=== PATIENT | female | born 1975 | race American Indian/Alaskan Native ===

== ENCOUNTER 2016-12-24 22:25 | Emergency (ER) | payer BC, OTHER ==
[~2016-12-24] VITALS: Ht 149.9 cm; Wt 70.3 kg
[~2016-12-24 22:25] MED LIST: BENADRYL25 MG PO; CIPROFLOXACIN500 MG PO; CORTIZONE-1099 GM TOP; COZAAR100 MG PO; CRESTOR40 MG PO; HYDROCHLOROTHIA25 MG PO; KEFLEX500 MG PO; MINOCYCLINE HC100 M1 PO; NAPROXEN500 MG PO; NOVOLOG100 UNITS/ SUB-Q; PHENAZOPYRIDIN200 MG PO; TYLENOL325 MG PO; WELLBUTRIN SR150 MG PO
[2016-12-24] MEDS ORDERED: AMLODIPINE BESYL5 MG PO (22:54)
[2016-12-24] MEDS ORDERED: LIPITOR40 MG PO (22:55)
--- NOTE | 2016-12-25 05:53 | EKG ---
[facility] [address] [place] [address] Signed Normal sinus rhythm Normal ECG No previous ECGs available Confirmed by ANGELLA PAN MD ([id number]) on 12/25/2016 5:53:05 AM Electronically Signed By: ANGELLA PAN MD 12/25/16 0553 PATIENT NAME: ANIA MENJIVAR MOUNA Electrocardiogram DATE OF : 73 PHYSICIAN: ANGELLA PAN MD REPORT #: [id number] REPORT IS CONFIDENTIAL AND NOT TO BE RELEASED WITHOUT AUTHORIZATION
== END 2016-12-25 01:18 | disposition home or self-care (01) ==
LOC: ED 22:25
DX: R60.0 Localized edema (principal); E10.22 Type 1 diabetes mellitus with diabetic chronic kidney disease; N18.3 Chronic kidney disease, stage 3 (moderate); F32.9 Major depressive disorder, single episode, unspecified; E78.5 Hyperlipidemia, unspecified; Z98.890 Other specified postprocedural states; Z88.0 Allergy status to penicillin; Z88.5 Allergy status to narcotic agent; Z88.8 Allergy status to other drugs, medicaments and biological substances; Z79.899 Other long term (current) 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; Z79.4 Long term (current) use of insulin
CPT/HCPCS: 71010; 80053; 81001; 84484; 85025; 93005; 93010; 99284

== ENCOUNTER 2017-05-27 14:27 | Observation (INO) | payer OTHER ==
[~2017-05-27] VITALS: Ht 149.9 cm; Wt 70.3 kg
[~2017-05-27 14:27] MED LIST changes: +AMLODIPINE BESYL5 MG PO; +LIPITOR40 MG PO
[2017-05-27] MEDS ORDERED: ALDACTONE25 MG PO (14:45)
[2017-05-27] MEDS ORDERED: CRESTOR10 MG PO (14:45)
[2017-05-27] MEDS ORDERED: GENVOYA TABLET1 EACH PO (14:46)
[2017-05-27] MEDS ORDERED: MAXIMUM DAILY1 EACH PO (14:46)
--- NOTE | 2017-05-27 20:00 | NUR ---
RC'D REPORT FROM DAY SHIFT NURSE. PT IN BED RESTING. SPOUSE AT BEDSIDE. ASSSESMENT COMPLETED. CBG 172, PT ASSESSED CBG WITH HOME DEVICE, HOME DEVICE FOUND TO HAVE A 30 POINT DIFFERENCE. INSULIN DRIP DC'D AT THIS TIME PER ORDER. PT REQUESTING MEAL, DIET UPDATED TO ADA, MEAL BOX ORDERED. CONTINUOUS NS @100ML/HR STARTED, SITE INTACT AND PATENT. CBG TO REASSESSED IN 1 HOUR. CALL LIGHT WITHIN REACH AND PT ADVISED TO CALL FOR ASSISTANCE TO RESTROOM.
--- NOTE | 2017-05-27 21:10 | NUR ---
IV ALARM SOUNDING FOR DISTAL OCCLUSION. CONTINUOUS LINE CHANGED FROM RAC TO RW. RAC FLUSHED AT THIS TIME. CBG OBTAINED AND 110, PT OBTAINED CBG WITH HOME DEVICE AND 20 POINT DIFFERENCE NOTED. PUMP SITE ASSESSED AND WNL. PT STATES SHE MAY CHANGE/ASSESS PUMP SITE IF CBG CONTINUE TO FLUCTUATE. PT ASSISTED TO RESTROOM. PT RETURNED TO BED. CALL LIGHT WITHIN REACH.
--- NOTE | 2017-05-27 21:25 | NUR ---
LAB IN ROOM OBTAINING LAB DRAW
--- NOTE | 2017-05-27 21:30 | NUR ---
PHONE CALL RC'D FROM DR. SOSA AND UPDATED ON PT'S CONDITION. NEW ORDERS RC'D FOR CBG CHECKS AND SLIDING SCALE INSULINE.
--- NOTE | 2017-05-28 00:15 | NUR ---
PT ASSISTED TO RESTROOM AND RETURNED TO BED. PT INQUIRING IF BP AND HOME MEDS CAN BE TAKEN. PT ADVISED TO HOLD HOME MEDS UNTIL VERIFIED WITH PROVIDER. PT INFORMED ALL MEDS SHOULD BE DISTRIBUTED BY CARE PROVIDER WHILE IN HOSPITAL. PER DR. SOSA, PT SHOULD CONTINUE TO HOLD HOME MEDS UNTIL RENAL FUNCTION IMPROVES.
--- NOTE | 2017-05-28 02:42 | NUR ---
ASSESSED CBG, 285 AT THIS TIME, PT'S HOME METER NOTED TO BE 299. PT AGREED TO SWITCH INSULIN PUMP SITE. INSULIN PUMP NEEDLE NOTED TO BE BENT UPON REMOVAL. PT'S ASSISTED WITH NEW SITE PLACEMENT. NOVOLOG HELD AT THIS TIME PER DR. SOSA'S RECOMMENDATION. CBG TO BE REASSESSED IN 2 HOURS TO MONITOR EFFECTIVENESS OF NEW SITE PLACEMENT. PT AGREEBLE WITH MEDICATION HOLD AND REASSESSMENT PLAN. PT ASSISTED TO RESTROOM. PT BACK IN BED. CALL LIGHT WITHIN REACH.
--- NOTE | 2017-05-28 04:00 | NUR ---
PT'S INSULIN PUMP ALARMING. CBG 297, HOME MONITOR NOTED TO BE 290. NOVOLOG GIVEN AT THIS TIME. WILL CONTINUE TO MONITOR CBG. CONTINUOUS NS RUNNING AT 100MLS/HR. PT ASSISTED TO RESTROOM. PT BACK TO BED. CALL LIGHT WITHIN REACH.
--- NOTE | 2017-05-28 05:20 | NUR ---
LAB IN ROOM. ASSESSMENT DONE AT THIS TIME. PT SLEEPING AND NOTED TO BE DROWSY WHEN RESPONDING TO QUESTIONS. REINFORCED TO CALL FOR ASSISTANCE TO RESTROOM AND REORIENTED TO CALL LIGHT, PT NODDED. PT BACK TO SLEEP AT THIS TIME.
--- NOTE | 2017-05-28 06:24 | NUR ---
OVERALL PT HAD A GOOD NIGHT AND SLEPT WELL. PT'S SPOUSE AT BEDSIDE. PT A&O X4, PLEASANT, AND INVOLVED WITH CARE. NO C/O N/V, CRAMPING, OR ITCHING. URINE OUTPUT GOOD. CBG CONTINUED TO BE ELEVATED THROUGHOUT THE NIGHT. INSULIN PUMP SITE CHANGED AND SLIDING SCALE INSULIN ORDERED. CONTINUOUS NS @100MLS/HR RUNNING. PT'S LABS SHOW CONTINUED DOWNWARD TRENDING IMPROVEMENT OF CREATININE, BUN, AND POTASSIUM. MORNING LABS PENDING AT THIS TIME. EKG DONE, NO SIGNS OF HYPERKALEMIA NOTED, PT IN SR THROUGHOUT THE NIGHT. PT TO DISCUSS RESTARTING HOME MEDICATIONS WITH DR. SOSA THIS MORNING PENDING RENAL FUNCTION RESULTS.
--- NOTE | 2017-05-28 08:11 | NUR ---
PT UP TO THE BATHROOM, VOIDING CLEAR YELLOW URINE, AMBULATES BACK TO BED WITH ASSISTANCE TO MANAGE IV LINES AND POLE. BKF ORDERED AND NO ADDITIONAL INSULIN REQUIRED THIS AM PER ORDERS. PT INSULIN PUMP IS SET AT 0.4 AND IT DID NOT GIVE HER ANY ADDITIONAL COVERAGE THIS AM. FRESH WATER TO PT AND SPOUSE IN THE ROOM. PT ALSO FEELS THAT SHE IS SWELLING IN HER HANDS AND FACE WITH THE IV FLUIDS RUNNING AT 100MLS/HR.
--- NOTE | 2017-05-28 09:12 | NUR ---
DR SOSA INTO PT AT THIS TIME. NEW ORDERS RECEIVED. PT TATA BE DISCHARGED TO HOME THIS AM. FOLLOW-UP APPOINTMENTS MADE.
--- NOTE | 2017-05-28 09:51 | NUR ---
PT DISCHARGED TO HOME, ALL QUESTIONS ANSWERED AND HANDOUTS GIVEN. PHARMANCY CAME TO TALK WITH PT ALSO. PT TAKEN OUT VIA W/C WITH SPOUSE AND NURSING STAFF.
--- NOTE | 2017-05-28 21:03 | EKG ---
[facility] [address] [place] [address] Signed Normal sinus rhythm Low voltage QRS Borderline ECG When compared with ECG of 24-DEC-2016 22:50, No significant change was found Confirmed by PAIGE SOSA MD ([id number]) on 05/28/2017 9:03:49 PM Electronically Signed By: PAIGE SOSA MD 05/28/172102 PATIENT NAME: OTTOANIA Electrocardiogram DATE OF : 73 PHYSICIAN: PAIGE SOSA MD REPORT #: [id number] REPORT IS CONFIDENTIAL AND NOT TO BE RELEASED WITHOUT AUTHORIZATION
== END 2017-05-28 09:45 | disposition home or self-care (01) ==
LOC: ED 14:27 → CCU 17:38
PROVIDERS: ADMIT Internal Medicine
DX: N17.9 Acute kidney failure, unspecified (principal); R35.8 Other polyuria; E10.65 Type 1 diabetes mellitus with hyperglycemia; E87.5 Hyperkalemia; E10.22 Type 1 diabetes mellitus with diabetic chronic kidney disease; I12.9 Hypertensive chronic kidney disease with stage 1 through stage 4 chronic kidney disease, or unspecified chronic kidney disease; N18.3 Chronic kidney disease, stage 3 (moderate); Z21 Asymptomatic human immunodeficiency virus [HIV] infection status; E78.5 Hyperlipidemia, unspecified; F32.9 Major depressive disorder, single episode, unspecified; T85.694A Other mechanical complication of insulin pump, initial encounter; Z88.5 Allergy status to narcotic agent; Z88.0 Allergy status to penicillin; Z79.899 Other long term (current) 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; Z88.8 Allergy status to other drugs, medicaments and biological substances
CPT/HCPCS: 36415; 80048; 80053; 81001; 82010; 82803; 85025; 93005; 93010; 96374; 96375; 96376; 99285; G0378; J2405; J7030

== ENCOUNTER 2018-03-29 14:59 | Emergency (ER) | payer BC, OTHER ==
[~2018-03-29] VITALS: Ht 149.9 cm; Wt 70.5 kg
[~2018-03-29 14:59] MED LIST changes: +ALDACTONE25 MG PO; +CRESTOR10 MG PO; +GENVOYA TABLET1 EACH PO; +MAXIMUM DAILY1 EACH PO
[2018-03-29] MEDS ORDERED: EPIVIR150 MG PO (15:38)
[2018-03-29] MEDS ORDERED: ZIDOVUDINE300 MG PO (15:38)
[2018-03-29] MEDS ORDERED: NORVIR100 M1 PO (15:38)
[2018-03-29] MEDS ORDERED: PREZISTA800 MG PO (15:38)
[2018-03-29] MEDS ORDERED: ZOFRAN4 MG PO ×2 (18:26→18:27)
== END 2018-03-29 18:30 | disposition home or self-care (01) ==
LOC: ED 14:59
DX: R11.2 Nausea with vomiting, unspecified (principal); E78.5 Hyperlipidemia, unspecified; I10 Essential (primary) hypertension; F32.9 Major depressive disorder, single episode, unspecified; E10.22 Type 1 diabetes mellitus with diabetic chronic kidney disease; I12.9 Hypertensive chronic kidney disease with stage 1 through stage 4 chronic kidney disease, or unspecified chronic kidney disease; N18.3 Chronic kidney disease, stage 3 (moderate); Z88.0 Allergy status to penicillin; Z88.5 Allergy status to narcotic agent; Z79.899 Other long term (current) 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; Z79.4 Long term (current) use of insulin
CPT/HCPCS: 80053; 81001; 84703; 85025; 96361; 96374; 99284-25; J2405; J7040

== ENCOUNTER 2018-08-31 21:32 | Emergency (ER) | payer BC, OTHER ==
[~2018-08-31] VITALS: Ht 149.9 cm; Wt 67.1 kg
[~2018-08-31 21:32] MED LIST changes: +EPIVIR150 MG PO; +NORVIR100 M1 PO; +PREZISTA800 MG PO; +ZIDOVUDINE300 MG PO; +ZOFRAN4 MG PO
== END 2018-09-01 01:06 | disposition home or self-care (01) ==
LOC: ED 21:32
DX: E10.65 Type 1 diabetes mellitus with hyperglycemia (principal); E10.22 Type 1 diabetes mellitus with diabetic chronic kidney disease; I12.9 Hypertensive chronic kidney disease with stage 1 through stage 4 chronic kidney disease, or unspecified chronic kidney disease; N18.3 Chronic kidney disease, stage 3 (moderate); E78.5 Hyperlipidemia, unspecified; F32.9 Major depressive disorder, single episode, unspecified; Z88.0 Allergy status to penicillin; Z88.5 Allergy status to narcotic agent; Z88.8 Allergy status to other drugs, medicaments and biological substances; Z79.899 Other long term (current) 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
CPT/HCPCS: 80048; 80053; 81001; 82010; 82800; 84703; 85025; 96361; 96374; 99283-25; J1815; J7030

== ENCOUNTER 2020-06-04 02:49 | Emergency (ER) | payer BC, OTHER ==
[~2020-06-04] VITALS: Ht 149.9 cm; Wt 67.4 kg
== END 2020-06-04 05:45 | disposition home or self-care (01) ==
LOC: ED 02:49
DX: R19.7 Diarrhea, unspecified (principal); E10.22 Type 1 diabetes mellitus with diabetic chronic kidney disease; E78.5 Hyperlipidemia, unspecified; I12.9 Hypertensive chronic kidney disease with stage 1 through stage 4 chronic kidney disease, or unspecified chronic kidney disease; B20 Human immunodeficiency virus [HIV] disease; N18.30 Chronic kidney disease, stage 3 unspecified; Z88.0 Allergy status to penicillin; Z88.5 Allergy status to narcotic agent; Z88.8 Allergy status to other drugs, medicaments and biological substances; Z79.899 Other long term (current) 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
CPT/HCPCS: 74176; 80053; 81001; 83690; 84703; 85025; 87177; 87209; 87493; 96374; 99284-25; J2405; J7030

== ENCOUNTER 2021-07-03 21:39 | Emergency (ER) | payer BC, OTHER ==
[~2021-07-03] VITALS: Ht 149.9 cm; Wt 68.8 kg
== END 2021-07-03 22:50 | disposition home or self-care (01) ==
LOC: ED 21:39
DX: H11.32 Conjunctival hemorrhage, left eye (principal); E78.5 Hyperlipidemia, unspecified; Z21 Asymptomatic human immunodeficiency virus [HIV] infection status; E10.22 Type 1 diabetes mellitus with diabetic chronic kidney disease; I12.9 Hypertensive chronic kidney disease with stage 1 through stage 4 chronic kidney disease, or unspecified chronic kidney disease; N18.30 Chronic kidney disease, stage 3 unspecified; Z88.0 Allergy status to penicillin; Z88.5 Allergy status to narcotic agent; Z88.8 Allergy status to other drugs, medicaments and biological substances; Z79.899 Other long term (current) 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; Z79.84 Long term (current) use of oral hypoglycemic drugs
CPT/HCPCS: 99283

== ENCOUNTER 2021-07-29 21:00 | Emergency (ER) | payer BC, OTHER ==
[~2021-07-29] VITALS: Ht 149.9 cm; Wt 71.9 kg
--- OUTSIDE RECORDS SUMMARY | 2021-07-29 21:08 | XMS ---
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 Huseyin has no Care Guidelines for this patient. [facility] MO[facility] NOTE: Visits indicate total known visits. ED[facility] VISIT TRACKING (12 MO.) [facility] COMPLAINT: - SKIN PROBLEM 07/03/2021 21:[address] [facility] [place] TYPE: Emergency COMPLAINT: - EYE PROBLEM DIAGNOSES: - Chronic kidney disease, stage 3 unspecified - Allergy status to penicillin - senior living (current) use of oral hypoglycemic drugs - Other specified disorders of eye and adnexa - Hypertensive chronic kidney disease with stage 1 through stage 4 chronic kidney disease, or unspecified chronic kidney disease - Allergy status to narcotic agent - Other retirement (current) 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 - Hyperlipidemia, unspecified - Allergy status to other drugs, medicaments and biological substances - Conjunctival hemorrhage, left eye - Type 1 diabetes mellitus with diabetic chronic kidney disease INPATIENT VISIT TRACKING (12 MO.) No inpatient visits to display in this time frame [id number]
[2021-07-29] MEDS ORDERED: CELEXA10 MG PO (21:22)
[2021-07-29] MEDS ORDERED: BACTRIM DS TAB1 EACH PO (21:25)
[2021-07-29] MEDS ORDERED: ULTRAM50 MG PO (21:25)
== END 2021-07-29 21:47 | disposition home or self-care (01) ==
LOC: ED 21:00
DX: S60.522A Blister (nonthermal) of left hand, initial encounter (principal); L08.9 Local infection of the skin and subcutaneous tissue, unspecified; E10.22 Type 1 diabetes mellitus with diabetic chronic kidney disease; I12.9 Hypertensive chronic kidney disease with stage 1 through stage 4 chronic kidney disease, or unspecified chronic kidney disease; N18.30 Chronic kidney disease, stage 3 unspecified; E78.5 Hyperlipidemia, unspecified; F32.A Depression, unspecified; Z79.899 Other long term (current) 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; Z88.5 Allergy status to narcotic agent; Z88.0 Allergy status to penicillin; Z88.8 Allergy status to other drugs, medicaments and biological substances; Z96.41 Presence of insulin pump (external) (internal); X58.XXXA Exposure to other specified factors, initial encounter; Y92.9 Unspecified place or not applicable
CPT/HCPCS: A9270

== ENCOUNTER 2022-10-27 21:01 | Emergency (ER) | payer OTHER, BC ==
[~2022-10-27] VITALS: Ht 149.9 cm; Wt 74.0 kg
--- OUTSIDE RECORDS SUMMARY | ~2022-10-27 | XMS | Continuity of Care Document ---
Demographics + + + | Address | [facility] [address] | | | [place] [address] | + + + | Preferred Language | Unknown | + + + | Marital Status | Never | + + + | Mormon Affiliation | Unknown | + + + | Race | or | + + + | Ethnic Group | Not or | + + + Author + + + | Author | [facility] | + + + | Organization | [facility] | + + + | Address | [address] | | | [place] [address] | + + + | Phone | | + + + Care Team Providers + + + + | Care Graduate Teaching Assistant Name | Role | Phone | + + + + Unavailable | Unavailable | + + + + Unavailable | Unavailable | + + + + Unavailable | Unavailable | + + + + Allergies and Intolerances + + + + + + | date | description | facility | reaction | severity | + + + + + + | (no date) | CODEINE | Emergency | (no reaction) | (no severity) | | | | Department at | | | | | | [facility] | | | + + + + + + | (no date) | Hives | Emergency | (no reaction) | (no severity) | | | | Department at | | | | | | [facility] | | | + + + + + + | (no date) | Urticaria | [facility] | (no reaction) | (no severity) | | | | [facility] | | | + + + + + + | (no date) | INSULIN | Emergency | (no reaction) | (no severity) | | | DETEMIR | Department at | | | | | | [facility] | | | + + + + + + | (no date) | Insulin | [facility] | (no reaction) | (no severity) | | | detemir | [facility] | | | + + + + + + | (no date) | CODEINE | Emergency | (no reaction) | (no severity) | | | | Department at | | | | | | [facility] | | | + + + + + + | (no date) | CODEINE | Emergency | (no reaction) | (no severity) | | | | Department at | | | | | | [facility] | | | + + + + + + | (no date) | CODEINE | Emergency | (no reaction) | (no severity) | | | | Department at | | | | | | [facility] | | | + + + + + + | (no date) | CODEINE | Emergency | (no reaction) | (no severity) | | | | Department at | | | | | | [facility] | | | + + + + + + | (no date) | CODEINE | Emergency | (no reaction) | (no severity) | | | | Department at | | | | | | [facility] | | | + + + + + + | (no date) | | [facility] | (no reaction) | (no severity) | | | Diphenhydramine | [facility] | | | + + + + + + | (no date) | CODEINE | Emergency | (no reaction) | (no severity) | | | | Department at | | | | | | [facility] | | | + + + + + + | (no date) | Codeine | [facility] | (no reaction) | (no severity) | | | | [facility] | | | + + + + + + | (no date) | CODEINE | Emergency | (no reaction) | (no severity) | | | | Department at | | | | | | [facility] | | | + + + + + + | (no date) | Ecchymoses | Emergency | (no reaction) | (no severity) | | | | Department at | | | | | | [facility] | | | + + + + + + | (no date) | | [facility] | (no reaction) | (no severity) | | | Diphenhydramine | [facility] | | | + + + + + + | (no date) | Codeine | [facility] | (no reaction) | (no severity) | | | | [facility] | | | + + + + + + | (no date) | Insulin | [facility] | (no reaction) | (no severity) | | | detemir | [facility] | | | + + + + + + | (no date) | INSULIN | Emergency | (no reaction) | (no severity) | | | DETEMIR | Department at | | | | | | [facility] | | | + + + + + + | (no date) | Insulin | [facility] | (no reaction) | (no severity) | | | detemir | [facility] | | | + + + + + + | (no date) | Penicillin | [facility] | (no reaction) | (no severity) | | | | [facility] | | | + + + + + + | (no date) | Penicillin | [facility] | (no reaction) | (no severity) | | | | [facility] | | | + + + + + + | (no date) | | [facility] | (no reaction) | (no severity) | | | Diphenhydramine | [facility] | | | + + + + + + | (no date) | CODEINE | Emergency | (no reaction) | (no severity) | | | | Department at | | | | | | [facility] | | | + + + + + + | (no date) | Penicillin | [facility] | (no reaction) | (no severity) | | | | [facility] | | | + + + + + + | (no date) | Penicillin | [facility] | (no reaction) | (no severity) | | | | [facility] | | | + + + + + + | (no date) | CODEINE | Emergency | (no reaction) | (no severity) | | | | Department at | | | | | | [facility] | | | + + + + + + | (no date) | Codeine | [facility] | (no reaction) | (no severity) | | | | [facility] | | | + + + + + + Encounters No information. Functional Status No information. Immunizations No information. Medications + + + + | date | description | facility | + + + + | 2022-05-09 00:00 | cetirizine hcl 10 mg oral | Emergency Department at | | | tablet | [facility] | + + + + | 2015-08-12 00:00 | HYDROCORTISONE | [facility] | + + + + | 2018-03-29 00:00 | ONDANSETRON HCL | [facility] | + + + + | 2017-11-17 00:00 | darunavir 800 mg oral | Emergency Department at | | | tablet | [facility] | + + + + | 2017-11-17 00:00 | prezista 800 mg oral | Emergency Department at | | | tablet | [facility] | + + + + | 2022-05-09 00:00 | polyvinyl alcohol 0.014 | Emergency Department at | | | ml/ml ophthalmic solution | [facility] | + + + + | 2022-06-09 00:00 | DOLUTEGRAVIR SODIUM | [facility] | + + + + | 2022-06-09 00:00 | LAMIVUDINE | [facility] | + + + + | 2022-05-09 00:00 | 3 ml humalog 100 unt/ml | Emergency Department at | | | cartridge | [facility] | + + + + | 2022-05-09 00:00 | insulin lispro 100 unt/ml | Emergency Department at | | | cartridge | [facility] | + + + + | 2022-06-09 00:00 | ELVITEG/QUIN/EMTRIC/ADARSHO | [facility] | | | ALA | | + + + + | 2018-05-03 00:00 | fluticasone propionate 50 | Emergency Department at | | | mcg/actuat metered dose | [facility] | | | nasal spray | | + + + + | 2022-06-09 00:00 | INDAPAMIDE | [facility] | + + + + | 2022-06-09 00:00 | Ascorbic Acid | [facility] | + + + + | 2022-06-09 00:00 | Semaglutide | [facility] | + + + + | 2017-11-17 00:00 | 3tc 150 mg oral tablet | Emergency Department at | | | | [facility] | + + + + | 2017-11-17 00:00 | azt 300 mg oral tablet | Emergency Department at | | | | [facility] | + + + + | 2022-06-09 00:00 | SPIRONOLACTONE | [facility] | + + + + | 2018-03-09 00:00 | [id number] 200 actuat | Emergency Department at | | | albuterol 0.09 mg/actuat | [facility] | | | metered dose inhaler | | + + + + | 2015-08-30 00:00 | CEPHALEXIN | [facility] | + + + + | 2022-06-09 00:00 | Cholecalciferol (Vitamin | [facility] | | | D3) | | + + + + | 2018-08-24 00:00 | cholecalciferol 125 mcg | Emergency Department at | | | oral capsule | [facility] | + + + + | 2022-05-09 00:00 | vitamin c 500 mg oral | Emergency Department at | | | tablet | [facility] | + + + + | 2022-06-09 00:00 | INSULIN GLARGINE | [facility] | + + + + | 2018-09-10 00:00 | estradiol 0.1 mg/ml | Emergency Department at | | | vaginal cream | [facility] | + + + + | 2022-06-09 00:00 | INSULIN ASPART | [facility] | + + + + | 2022-06-09 00:00 | DULOXETINE HCL | [facility] | + + + + | 2021-07-29 00:00 | TRAMADOL HCL | [facility] | + + + + | 2022-05-05 00:00 | calcium chloride 0.0014 | Emergency Department at | | | meq/ml / k+ chloride 0.004 | [facility] | | | meq/ml / nacl 0.103 meq/ml | | | | / sodium lactate 0.028 | | | | meq/ml injectable solution | | + + + + | 2017-03-26 00:00 | rosuvastatin calcium 10 mg | Emergency Department at | | | oral tablet | [facility] | + + + + | 2022-06-09 00:00 | ROSUVASTATIN CALCIUM | [facility] | + + + + | 2018-09-10 00:00 | estrace 0.01 % vaginal | Emergency Department at | | | cream | [facility] | + + + + | 2018-09-08 00:00 | ritonavir 100 mg oral | Emergency Department at | | | tablet | [facility] | + + + + | 2022-06-09 00:00 | LOSARTAN POTASSIUM | [facility] | + + + + | 2022-06-09 00:00 | LOSARTAN POTASSIUM | [facility] | + + + + | 2018-09-08 00:00 | losartan potassium 50 mg | Emergency Department at | | | oral tablet | [facility] | + + + + | 2019-07-28 00:00 | bupropion hcl 150 mg 12 hr | Emergency Departmentat | | | extended release oral | [facility] | | | tablet | | + + + + | 2022-05-09 00:00 | fexofenadine hcl 180 mg 24 | Emergency Department at | | | hr oral tablet | [facility] | + + + + Problems + + + + | date | description | facility | + + + + | 2014-11-10 00:00 | Patient left without being | [facility] | | | seen | | + + + + | 2015-08-12 00:00 | Perioral dermatitis | [facility] | + + + + | 2015-08-30 00:00 | Viral infection | [facility] | + + + + | 2016-06-06 00:00 | Migraine headache | [facility] | + + + + | 2016-06-06 00:00 | Acute maxillary sinusitis | [facility] | + + + + | 2016-12-25 00:00 | Peripheral edema | [facility] | + + + + | 2017-05-27 00:00 | Hyperglycemia | [facility] | + + + + | 2018-03-29 00:00 | Vomiting | [facility] | + + + + | 2020-06-04 00:00 | Diarrhea | [facility] | + + + + | 2020-06-16 21:58:33 | Anemia in chronic kidney | [facility] | | | disease | [facility] | + + + + | 2020-06-16 21:58:33 | Type 1 diabetes mellitus | [facility] | | | with ketoacidosis without | [facility] | | | coma | | + + + + | 2020-06-16 21:58:33 | Chronic kidney disease, | [facility] | | | stage 4 (severe) | [facility] | + + + + | 2021-07-03 00:00 | Subconjunctival hemorrhage | [facility] | | | | | + + + + | 2021-07-03 21:39 | Type 1 diabetes mellitus | [facility] | | | with diabetic chronic | [facility] | | | kidney disease | | + + + + | 2021-07-03 21:39 | Hyperlipidemia, | [facility] | | | unspecified | [facility] | + + + + | 2021-07-03 21:39 | Conjunctival hemorrhage, | [facility] | | | left eye | [facility] | + + + + | 2021-07-03 21:39 | Other specified disorders | [facility] | | | of eye and adnexa | [facility] | + + + + | 2021-07-03 21:39 | Hypertensive chronic kidney | [facility] | | | disease with stage 1 | [facility] | | | through stage 4 chronic | | | | kidney disease, or | | | | unspecified chronic kidney | | | | disease | | + + + + | 2021-07-03 21:39 | Chronic kidney disease, | [facility] | | | stage 3 unspecified | [facility] | + + + + | 2021-07-03 21:39 | residential (current) use of | [facility] | | | oral hypoglycemic drugs | [facility] | + + + + | 2021-07-03 21:39 | 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) | [facility] | | | 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 | [facility] | + + + + | 2021-07-03 21:39 | Allergy status to | [facility] | | | penicillin | [facility] | + + + + | 2021-07-03 21:39 | Allergy status to narcotic | [facility] | | | agent | [facility] | + + + + | 2021-07-03 21:39 | Allergy status to other | [facility] | | | drugs, medicaments and | [facility] | | | biological substances | | + + + + | 2021-07-29 00:00 | Infected blister of left | [facility] | | | hand | | + + + + | 2021-07-29 21:00 | Type 1 diabetes mellitus | [facility] | | | with diabetic chronic | [facility] | | | kidney disease | | + + + + | 2021-07-29 21:00 | Hyperlipidemia, | [facility] | | | unspecified | [facility] | + + + + | 2021-07-29 21:00 | Depression, unspecified | [facility] | | | | [facility] | + + + + | 2021-07-29 21:00 | Hypertensive chronic kidney | [facility] | | | disease with stage 1 | [facility] | | | through stage 4 chronic | | | | kidney disease, or | | | | unspecified chronic kidney | | | | disease | | + + + + | 2021-07-29 21:00 | Local infection of the | [facility] | | | skin and subcutaneous | [facility] | | | tissue, unspecified | | + + + + | 2021-07-29 21:00 | Pain in left hand | [facility] | | | | [facility] | + + + + | 2021-07-29 21:00 | Chronic kidney disease, | [facility] | | | stage 3 unspecified | [facility] | + + + + | 2021-07-29 21:00 | Blister (nonthermal) of | [facility] | | | left hand, initial | [facility] | | | encounter | | + + + + | 2021-07-29 21:00 | Exposure to other | [facility] | | | specified factors, initial | [facility] | | | encounter | | + + + + | 2021-07-29 21:00 | Unspecified place or not | [facility] | | | applicable | [facility] | + + + + | 2021-07-29 21:00 | Other longterm (current) | [facility] | | | 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 | [facility] | + + + + | 2021-07-29 21:00 | Allergy status to | [facility] | | | penicillin | [facility] | + + + + | 2021-07-29 21:00 | Allergy status to narcotic | [facility] | | | agent | [facility] | + + + + | 2021-07-29 21:00 | Allergy status to other | [facility] | | | drugs, medicaments and | [facility] | | | biological substances | | + + + + | 2021-07-29 21:00 | Presence of insulin pump | [facility] | | | (external) (internal) | [facility] | + + + + | 2022-06-09 00:00 | Acute bronchitis | [facility] | + + + + | 2022-06-09 00:00 | Hematuria | [facility] | + + + + | 2022-06-09 00:00 | Positive laboratory | [facility] | | | testing for human | | | | immunodeficiency virus | | + + + + Procedures + + + + | date | description | facility | + + + + | 2022-05-05 00:00 | BASIC METABOLIC SET (NA, | Emergency Department at | | | K, CL, TCO2, BUN, CR, GLU, | [facility] | | | [place]) | | + + + + | 2022-05-05 00:00 | CBC W/DIFF, REFLEX | Emergency Department at | | | | [facility] | + + + + Results/Labs +--------+--------+ +---------+--------+---------+ | test | date | facility | value | unit | notes | +--------+--------+ +---------+--------+---------+ + + | Result panel 1 | + + + + + + + + + | Specimen | (no date) | Emergency | (missing) | (missing) | (missing) | | collection | | Department | | | | | (procedure) | | at [facility] | | | | + + + + + + + + + | Result panel 2 | + + + + + + + + + | Specimen | (no date) | Emergency | (missing) | (missing) | (missing) | | collection | | Department | | | | | (procedure) | | at [facility] | | | | + + + + + + + + + | Result panel 3 | + + + + +-------+ + + + | nRBC/100 | 2022-05-05 | [facility] | 0.0 | % | (missing) | | WBC Bld | 00:00 | | | | | | Auto-Rto | | | | | | + + +-------+ + + + | nRBC # Bld | 2022-05-05 | [facility] | 0.00 | k/cu mm | (missing) | | Auto | 00:00 | | | | | + + +-------+ + + + | Imm | 2022-05-05 | [facility] | 0.01 | k/cu mm | (missing) | | Granulocytes | 00:00 | | | | | | # Bld Auto | | | | | | + + +-------+ + + + | Basophils # | 2022-05-05 | [facility] | 0.01 | k/cu mm | (missing) | | Bld Auto | 00:00 | | | | | + + +-------+ + + + | Eosinophil | 2022-05-05 | [facility] | 0.16 | k/cu mm | (missing) | | # Bld Auto | 00:00 | | | | | + + +-------+ + + + | | 2022-05-05 | [facility] | 0.2 | % | (missing) | | Basophils/le | 00:00 | | | | | | uk NFr Bld | | | | | | | Auto | | | | | | + + +-------+ + + + | Imm | 2022-05-05 | [facility] | 0.2 | % | (missing) | | Granulocytes | 00:00 | | | | | | /leuk NFr | | | | | | | Bld Auto | | | | | | + + +-------+ + + + | Monocytes # | 2022-05-05 | [facility] | 0.59 | k/cu mm | (missing) | | Bld Auto | 00:00 | | | | | + + +-------+ + + + | Anion Gap | 2022-05-05 | [facility] | 0.8 | mmol/l | (missing) | | SerPl-sCnc | 00:00 | | | | | + + +-------+ + + + | Lymphocytes | 2022-05-05 | [facility] | 1.77 | k/cu mm | (missing) | | # Bld Auto | 00:00 | | | | | + + +-------+ + + + | Neutrophils | 2022-05-05 | [facility] | 1.87 | k/cu mm | (missing) | | # Bld Auto | 00:00 | | | | | + + +-------+ + + + | Chloride | 2022-05-05 | [facility] | 103 | mmol/l | (missing) | | SerPl-sCnc | 00:00 | | | | | + + +-------+ + + + | BUN/Creat | 2022-05-05 | [facility] | 11.0 | na | (missing) | | SerPl | 00:00 | | | | | + + +-------+ + + + | Hgb | 2022-05-05 | [facility] | 11.2 | g/dl | (missing) | | Bld-mCnc | 00:00 | | | | | + + +-------+ + + + | RDW RBC | 2022-05-05 | [facility] | 12.0 | % | (missing) | | Auto-Rto | 00:00 | | | | | + + +-------+ + + + | | 2022-05-05 | [facility] | 13.4 | % | (missing) | | Monocytes/le | 00:00 | | | | | | uk NFr Bld | | | | | | | Auto | | | | | | + + +-------+ + + + | Sodium | 2022-05-05 | [facility] | 139 | mmol/l | (missing) | | SerPl-sCnc | 00:00 | | | | | + + +-------+ + + + | Creat | 2022-05-05 | [facility] | 2.3 | mg/dl | (missing) | | SerPl-mCnc | 00:00 | | | | | + + +-------+ + + + | Platelet # | 2022-05-05 | [facility] | 231 | k/cu mm | (missing) | | Bld Auto | 00:00 | | | | | + + +-------+ + + + | BUN | 2022-05-05 | [facility] | 25 | mg/dl | (missing) | | SerPl-mCnc | 00:00 | | | | | + + +-------+ + + + | GFR/BSA | 2022-05-05 | [facility] | 26 | ml/min/1.73 | (missing) | | pred.nonblk | 00:00 | | | m2 | | | SerPl | | | | | | | UGN-TME-DtRM | | | | | | | at | | | | | | + + +-------+ + + + | Potassium | 2022-05-05 | [facility] | 3.4 | mmol/l | (missing) | | SerPl-sCnc | 00:00 | | | | | + + +-------+ + + + | | 2022-05-05 | [facility] | 3.6 | % | (missing) | | Eosinophil/l | 00:00 | | | | | | euk NFr Bld | | | | | | | Auto | | | | | | + + +-------+ + + + | RBC # Bld | 2022-05-05 | [facility] | 3.69 | m/cu mm | (missing) | | Auto | 00:00 | | | | | + + +-------+ + + + | MCH RBC Qn | 2022-05-05 | [facility] | 30.4 | pg | (missing) | | Auto | 00:00 | | | | | + + +-------+ + + + | Hct VFr Bld | 2022-05-05 | [facility] | 32.2 | % | (missing) | | Auto | 00:00 | | | | | + + +-------+ + + + | | 2022-05-05 | [facility] | 34 | ml/min/1.73 | (missing) | | GFR/BSA.pred | 00:00 | | | m2 | | | SerPlBld | | | | | | | YTW-DFA-MtYT | | | | | | | at | | | | | | + + +-------+ + + + | MCHC RBC | 2022-05-05 | [facility] | 34.8 | g/dl | (missing) | | Auto-mCnc | 00:00 | | | | | + + +-------+ + + + | CO2 | 2022-05-05 | [facility] | 36 | mmol/l | (missing) | | SerPl-sCnc | 00:00 | | | | | + + +-------+ + + + | WBC # Bld | 2022-05-05 | [facility] | 4.41 | k/cu mm | (missing) | | Auto | 00:00 | | | | | + + +-------+ + + + | | 2022-05-05 | [facility] | 40.1 | % | (missing) | | Lymphocytes/ | 00:00 | | | | | | leuk NFr Bld | | | | | | | Auto | | | | | | + + +-------+ + + + | | 2022-05-05 | [facility] | 42.5 | % | (missing) | | Neutrophils/ | 00:00 | | | | | | leuk NFr Bld | | | | | | | Auto | | | | | | + + +-------+ + + + | Calcium | 2022-05-05 | [facility] | 8.3 | mg/dl | (missing) | | SerPl-mCnc | 00:00 | | | | | + + +-------+ + + + | PMV Bld | 2022-05-05 | [facility] | 8.9 | fl | (missing) | | Auto | 00:00 | | | | | + + +-------+ + + + | Glucose | 2022-05-05 | [facility] | 84 | mg/dl | (missing) | | SerPl-mCnc | 00:00 | | | | | + + +-------+ + + + | MCV RBC | 2022-05-05 | [facility] | 87.3 | fl | (missing) | | Auto | 00:00 | | | | | + + +-------+ + + + | | 2022-05-05 | [facility] | Calculation | (missing) | (missing) | | (unavailable | 00:00 | | based on | | | | ) | | | CKD-EPI | | | | | | | equation | | | | | | | without | | | | | | | adjustment | | | | | | | for race. | | | | | | | The CKD-EPI | | | | | | | equation has | | | | | | | not been | | | | | | | validated | | | | | | | for use in | | | | | | | transgender | | | | | | | individuals. | | | + + +-------+ + + + + + | Result panel 4 | + + + + + +--------+ + + | | 2022-05-05 | Emergency | 4.41 | (missing) | (missing) | | (unavailable | 08:49:33 | Department | | | | | ) | | at [facility] | | | | + + + +--------+ + + + + | Result panel 5 | + + + + + +--------+ + + | | 2022-05-05 | Emergency | 3.69 | (missing) | (missing) | | (unavailable | 08:49:33 | Department | | | | | ) | | at [facility] | | | | + + + +--------+ + + + + | Result panel 6 | + + + + + +--------+--------+ + | | 2022-05-05 | Emergency | 11.2 | g/dL | (missing) | | (unavailable | 08:49:33 | Department | | | | | ) | | at [facility] | | | | + + + +--------+--------+ + + + | Result panel 7 | + + + + + +--------+-----+ + | | 2022-05-05 | Emergency | 32.2 | % | (missing) | | (unavailable | 08:49:33 | Department | | | | | ) | | at [facility] | | | | + + + +--------+-----+ + + + | Result panel 8 | + + + + + +--------+------+ + | | 2022-05-05 | Emergency | 87.3 | fL | (missing) | | (unavailable | 08:49:33 | Department | | | | | ) | | at [facility] | | | | + + + +--------+------+ + + + | Result panel 9 | + + + + + +--------+------+ + | | 2022-05-05 | Emergency | 30.4 | pg | (missing) | | (unavailable | 08:49:33 | Department | | | | | ) | | at [facility] | | | | + + + +--------+------+ + + + | Result panel 10 | + + + + + +--------+--------+ + | | 2022-05-05 | Emergency | 34.8 | g/dL | (missing) | | (unavailable | 08:49:33 | Department | | | | | ) | | at [facility] | | | | + + + +--------+--------+ + + + | Result panel 11 | + + + + + +--------+-----+ + | | 2022-05-05 | Emergency | 12.0 | % | (missing) | | (unavailable | 08:49:33 | Department | | | | | ) | | at [facility] | | | | + + + +--------+-----+ + + + | Result panel 12 | + + + + + +-------+ + + | | 2022-05-05 | Emergency | 231 | (missing) | (missing) | | (unavailable | 08:49:33 | Department | | | | | ) | | at [facility] | | | | + + + +-------+ + + + + | Result panel 13 | + + + + + +-------+------+ + | | 2022-05-05 | Emergency | 8.9 | fL | (missing) | | (unavailable | 08:49:33 | Department | | | | | ) | | at [facility] | | | | + + + +-------+------+ + + + | Result panel 14 | + + + + + +-------+-----+ + | | 2022-05-05 | Emergency | 0.0 | % | (missing) | | (unavailable | 08:49:33 | Department | | | | | ) | | at [facility] | | | | + + + +-------+-----+ + + + | Result panel 15 | + + + + + +--------+ + + | | 2022-05-05 | Emergency | 0.00 | (missing) | (missing) | | (unavailable | 08:49:33 | Department | | | | | ) | | at [facility] | | | | + + + +--------+ + + + + | Result panel 16 | + + + + + +--------+-----+ + | | 2022-05-05 | Emergency | 42.5 | % | (missing) | | (unavailable | 08:49:33 | Department | | | | | ) | | at [facility] | | | | + + + +--------+-----+ + + + | Result panel 17 | + + + + + +--------+-----+ + | | 2022-05-05 | Emergency | 40.1 | % | (missing) | | (unavailable | 08:49:33 | Department | | | | | ) | | at [facility] | | | | + + + +--------+-----+ + + + | Result panel 18 | + + + + + +--------+-----+ + | | 2022-05-05 | Emergency | 13.4 | % | (missing) | | (unavailable | 08:49:33 | Department | | | | | ) | | at [facility] | | | | + + + +--------+-----+ + + + | Result panel 19 | + + + + + +-------+-----+ + | | 2022-05-05 | Emergency | 3.6 | % | (missing) | | (unavailable | 08:49:33 | Department | | | | | ) | | at [facility] | | | | | | | Hospital | | | | + + + +-------+-----+ + + + | Result panel 20 | + + + + + +-------+-----+ + | | 2022-05-05 | Emergency | 0.2 | % | (missing) | | (unavailable | 08:49:33 | Department | | | | | ) | | at [facility] | | | | | | | Hospital | | | | + + + +-------+-----+ + + + | Result panel 21 | + + + + + +-------+-----+ + | | 2022-05-05 | Emergency | 0.2 | % | (missing) | | (unavailable | 08:49:33 | Department | | | | | ) | | at [facility] | | | | | | | Hospital | | | | + + + +-------+-----+ + + + | Result panel 22 | + + + + + +--------+ + + | | 2022-05-05 | Emergency | 1.87 | (missing) | (missing) | | (unavailable | 08:49:33 | Department | | | | | ) | | at [facility] | | | | | | | Hospital | | | | + + + +--------+ + + + + | Result panel 23 | + + + + + +--------+ + + | | 2022-05-05 | Emergency | 1.77 | (missing) | (missing) | | (unavailable | 08:49:33 | Department | | | | | ) | | at [facility] | | | | + + + +--------+ + + + + | Result panel 24 | + + + + + +--------+ + + | | 2022-05-05 | Emergency | 0.59 | (missing) | (missing) | | (unavailable | 08:49:33 | Department | | | | | ) | | at [facility] | | | | + + + +--------+ + + + + | Result panel 25 | + + + + + +--------+ + + | | 2022-05-05 | Emergency | 0.16 | (missing) | (missing) | | (unavailable | 08:49:33 | Department | | | | | ) | | at [facility] | | | | + + + +--------+ + + + + | Result panel 26 | + + + + + +--------+ + + | | 2022-05-05 | Emergency | 0.01 | (missing) | (missing) | | (unavailable | 08:49:33 | Department | | | | | ) | | at [facility] | | | | + + + +--------+ + + + + | Result panel 27 | + + + + + +--------+ + + | | 2022-05-05 | Emergency | 0.01 | (missing) | (missing) | | (unavailable | 08:49:33 | Department | | | | | ) | | at [facility] | | | | + + + +--------+ + + + + | Result panel 28 | + + + + + + + + + | | 2022-05-05 | Emergency | Abnormal | (missing) | (missing) | | (unavailable | 08:49:33 | Department | | | | | ) | | at [facility] | | | | + + + + + + + + + | Result panel 29 | + + + + + +------+---------+ + | | 2022-05-05 | Emergency | 84 | mg/dL | (missing) | | (unavailable | 09:10:44 | Department | | | | | ) | | at [facility] | | | | + + + +------+---------+ + + + | Result panel 30 | + + + + + +------+---------+ + | | 2022-05-05 | Emergency | 25 | mg/dL | (missing) | | (unavailable | 09:10:44 | Department | | | | | ) | | at [facility] | | | | + + + +------+---------+ + + + | Result panel 31 | + + + + + +-------+---------+ + | | 2022-05-05 | Emergency | 2.3 | mg/dL | (missing) | | (unavailable | 09:10:44 | Department | | | | | ) | | at [facility] | | | | + + + +-------+---------+ + + + | Result panel 32 | + + + + + +------+ + + | | 2022-05-05 | Emergency | 34 | (missing) | (missing) | | (unavailable | 09:10:44 | Department | | | | | ) | | at [facility] | | | | + + + +------+ + + + + | Result panel 33 | + + + + + +------+ + + | | 2022-05-05 | Emergency | 26 | (missing) | (missing) | | (unavailable | 09:10:44 | Department | | | | | ) | | at [facility] | | | | + + + +------+ + + + + | Result panel 34 | + + + + + +-------+ + + | | 2022-05-05 | Emergency | 139 | mmol/L | (missing) | | (unavailable | 09:10:44 | Department | | | | | ) | | at [facility] | | | | + + + +-------+ + + + + | Result panel 35 | + + + + + +-------+ + + | | 2022-05-05 | Emergency | 3.4 | mmol/L | (missing) | | (unavailable | 09:10:44 | Department | | | | | ) | | at [facility] | | | | + + + +-------+ + + + + | Result panel 36 | + + + + + +-------+ + + | | 2022-05-05 | Emergency | 103 | mmol/L | (missing) | | (unavailable | 09:10:44 | Department | | | | | ) | | at [facility] | | | | + + + +-------+ + + + + | Result panel 37 | + + + + + +------+ + + | | 2022-05-05 | Emergency | 36 | mmol/L | (missing) | | (unavailable | 09:10:44 | Department | | | | | ) | | at [facility] | | | | + + + +------+ + + + + | Result panel 38 | + + + + + +-------+---------+ + | | 2022-05-05 | Emergency | 8.3 | mg/dL | (missing) | | (unavailable | 09:10:44 | Department | | | | | ) | | at [facility] | | | | + + + +-------+---------+ + + + | Result panel 39 | + + + + + +-------+ + + | | 2022-05-05 | Emergency | 0.8 | mmol/L | (missing) | | (unavailable | 09:10:44 | Department | | | | | ) | | at [facility] | | | | + + + +-------+ + + + + | Result panel 40 | + + + + + +--------+ + + | | 2022-05-05 | Emergency | 11.0 | (missing) | (missing) | | (unavailable | 09:10:44 | Department | | | | | ) | | at [facility] | | | | + + + +--------+ + + + + | Result panel 41 | + + + + + + + + + | | 2022-05-05 | Emergency | (missing) | (missing) | (missing) | | (unavailable | 09:10:44 | Department | | | | | ) | | at [facility] | | | | + + + + + + + + + | Result panel 42 | + + + + + + + + + | | 2022-05-05 | Emergency | Abnormal | (missing) | (missing) | | (unavailable | 09:10:44 | Department | | | | | ) | | at [facility] | | | | + + + + + + + + + | Result panel 43 | + + + + + + + + + | | 2022-06-09 | [facility] | NEGATIVE | (missing) | (missing) | | (unavailable | 20:15:07 | [facility] | | | | + + + + + + + + + | Result panel 44 | + + + + + + + + + | | 2022-06-09 | [facility] | NEGATIVE | (missing) | (missing) | | (unavailable | 20:15:07 | [facility] | | | | + + + + + + + + + | Result panel 45 | + + + + + + + + + | | 2022-06-09 | [facility] | NEGATIVE | (missing) | (missing) | | (unavailable | 20:15:07 | [facility] | | | | + + + + + + + + + | Result panel 46 | + + + + + + + + + | | 2022-06-09 | [facility] | NEGATIVE | (missing) | (missing) | | (unavailable | 20:15:07 | [facility] | | | | + + + + + + + + + | Result panel 47 | + + + + + +-------+ + + | | 2022-06-09 | [facility] | 6.8 | (missing) | (missing) | | (unavailable | 20:22:07 | [facility] | | | | + + + +-------+ + + + + | Result panel 48 | + + + + + +--------+ + + | | 2022-06-09 | [facility] | 52.9 | (missing) | (missing) | | (unavailable | 20:22:07 [facility] | | | | + + + +--------+ + + + + | Result panel 49 | + + + + + +--------+ + + | | 2022-06-09 | [facility] | 36.4 | (missing) | (missing) | | (unavailable | 20:22:07 [facility] | | | | + + + +--------+ + + + + | Result panel 50 | + + + + + +-------+ + + | | 2022-06-09 | [facility] | 7.3 | (missing) | (missing) | | (unavailable | 20:22:07 [facility] | | | | + + + +-------+ + + + + | Result panel 51 | + + + + + +-------+ + + | | 2022-06-09 | [facility] | 3.1 | (missing) | (missing) | | (unavailable | 20::07 | [facility] | | | | + + + +-------+ + + + + | Result panel 52 | + + + + + +-------+ + + | | 2022-06-09 | [facility] | 0.3 | (missing) | (missing) | | (unavailable | 20::07 | [facility] | | | | + + + +-------+ + + + + | Result panel 53 | + + + + + +--------+ + + | | 2022-06-09 | [facility] | 3.59 | (missing) | (missing) | | (unavailable | 20::07 | [facility] | | | | + + + +--------+ + + + + | Result panel 54 | + + + + + +--------+ + + | | 2022-06-09 | [facility] | 10.6 | (missing) | (missing) | | (unavailable | 20:22:07 [facility] | | | | + + + +--------+ + + + + | Result panel 55 | + + + + + +------+---------+ + | | 2022-06-09 | [facility] | 91 | mg/dL | (missing) | | (unavailable | 20::07 | [facility] | | | | + + + +------+---------+ + + + | Result panel 56 | + + + + + +------+---------+ + | | 2022-06-09 | [facility] | 38 | mg/dL | (missing) | | (unavailable | 20:22:07 [facility] | | | | + + + +------+---------+ + + + | Result panel 57 | + + + + + +--------+---------+ + | | 2022-06-09 | [facility] | 2.88 | mg/dL | (missing) | | (unavailable | 20:22:07 [facility] | | | | + + + +--------+---------+ + + + | Result panel 58 | + + + + + +------+ + + | | 2022-06-09 | [facility] | 20 | (missing) | (missing) | | (unavailable | 20:22:07 [facility] | | | | + + + +------+ + + + + | Result panel 59 | + + + + + +---------+ + + | | 2022-06-09 | [facility] | 13.19 | (missing) | (missing) | | (unavailable | 20:22:07 [facility] | | | | + + + +---------+ + + + + | Result panel 60 | + + + + + +-------+ + + | | 2022-06-09 | [facility] | 142 | (missing) | (missing) | | (unavailable | 20:22:07 [facility] | | | | + + + +-------+ + + + + | Result panel 61 | + + + + + +--------+ + + | | 2022-06-09 | [facility] | 32.2 | (missing) | (missing) | | (unavailable | 20::07 | [facility] | | | | + + + +--------+ + + + + | Result panel 62 | + + + + + +-------+ + + | | 2022-06-09 | [facility] | 4.0 | (missing) | (missing) | | (unavailable | 20:22:07 [facility] | | | + + + +-------+ + + + + | Result panel 63 | + + + + + +-------+ + + | | 2022-06-09 | [facility] | 107 | (missing) | (missing) | | (unavailable | 20:22:07 [facility] | | | + + + +-------+ + + + + | Result panel 64 | + + + + + +------+ + + | | 2022-06-09 | [facility] | 28 | (missing) | (missing) | | (unavailable | 20:22:07 [facility] | | | + + + +------+ + + + + | Result panel 65 | + + + + + +--------+ + + | | 2022-06-09 | [facility] | 11.0 | (missing) | (missing) | | (unavailable | 20:22:07 [facility] | | | + + + +--------+ + + + + | Result panel 66 | + + + + + +-------+---------+ + | | 2022-06-09 | [facility] | 8.9 | mg/dL | (missing) | | (unavailable | 20:22:07 [facility] | | | | + + + +-------+---------+ + + + | Result panel 67 | + + + + + +-------+ + + | | 2022-06-09 | [facility] | 7.2 | (missing) | (missing) | | (unavailable | 20:22:07 [facility] | | | + + + +-------+ + + + + | Result panel 68 | + + + + + +-------+ + + | | 2022-06-09 | [facility] | 3.2 | (missing) | (missing) | | (unavailable | 20:22:07 [facility] | | | + + + +-------+ + + + + | Result panel 69 | + + + + + +-------+ + + | | 2022-06-09 | [facility] | 4.0 | (missing) | (missing) | | (unavailable | 20:22:07 [facility] | | | + + + +-------+ + + + + | Result panel 70 | + + + + + +--------+ + + | | 2022-06-09 | [facility] | 0.80 | (missing) | (missing) | | (unavailable | 20:22:07 [facility] | | | + + + +--------+ + + + + | Result panel 71 | + + + + + +-------+ + + | | 2022-06-09 | [facility] | 0.3 | (missing) | (missing) | | (unavailable | 20:22:07 [facility] | | | + + + +-------+ + + + + | Result panel 72 | + + + + + +--------+ + + | | 2022-06-09 | [facility] | 89.8 | (missing) | (missing) | | (unavailable | 20:22:07 [facility] | | | + + + +--------+ + + + + | Result panel 73 | + + + + + +------+ + + | | 2022-06-09 | [facility] | 23 | (missing) | (missing) | | (unavailable | 20:22:07 [facility] | | | + + + +------+ + + + + | Result panel 74 | + + + + + +------+ + + | | 2022-06-09 | [facility] | 20 | (missing) | (missing) | | (unavailable | 20:22:07 [facility] | | | + + + +------+ + + + + | Result panel 75 | + + + + + +-------+ + + | | 2022-06-09 | [facility] | 115 | (missing) | (missing) | | (unavailable | 20:22:07 [facility] | | | + + + +-------+ + + + + | Result panel 76 | + + + + + +--------+ + + | | 2022-06-09 | [facility] | 29.4 | (missing) | (missing) | | (unavailable | 20:22:07 [facility] | | | + + + +--------+ + + + + | Result panel 77 | + + + + + +--------+ + + | | 2022-06-09 | [facility] | 32.8 | (missing) | (missing) | | (unavailable | 20:22:07 [facility] | | | + + + +--------+ + + + + | Result panel 78 | + + + + + +--------+ + + | | 2022-06-09 | [facility] | 13.5 | (missing) | (missing) | | (unavailable | 20:22:07 [facility] | | | + + + +--------+ + + + + | Result panel 79 | + + + + + +-------+ + + | | 2022-06-09 | [facility] | 297 | (missing) | (missing) | | (unavailable | 20:22:07 [facility] | | | + + + +-------+ + + + + | Result panel 80 | + + + + + + + + + | | 2022-06-09 | [facility] | YELLOW | (missing) | (missing) | | (unavailable | 21:20:07 [facility] | | | | + + + + + + + + + | Result panel 81 | + + + + + +---------+ + + | | 2022-06-09 | [facility] | CLEAR | (missing) | (missing) | | (unavailable | 21:20:07 [facility] | | | | + + + +---------+ + + + + | Result panel 82 | + + + + + + + + + | | 2022-06-09 | [facility] | NEGATIVE | (missing) | (missing) | | (unavailable | 21:20:07 [facility] | | | | + + + + + + + + + | Result panel 83 | + + + + + + + + + | | 2022-06-09 | [facility] | NEGATIVE | (missing) | (missing) | | (unavailable | 21:20:07 [facility] | | | | + + + + + + + + + | Result panel 84 | + + + + + + + + + | | 2022-06-09 | [facility] | NEGATIVE | (missing) | (missing) | | (unavailable | 21:20:07 [facility] | | | | + + + + + + + + + | Result panel 85 | + + + + + +---------+ + + | | 2022-06-09 | [facility] | 1.025 | (missing) | (missing) | | (unavailable | 21:20:07 [facility] | | | + + + +---------+ + + + + | Result panel 86 | + + + + + +---------+ + + | | 2022-06-09 | [facility] | SMALL | (missing) | (missing) | | (unavailable | 21:20:07 [facility] | | | | + + + +---------+ + + + + | Result panel 87 | + + + + + +-------+ + + | | 2022-06-09 | [facility] | 6.5 | (missing) | (missing) | | (unavailable | 21:20:07 [facility] | | | | + + + +-------+ + + + + | Result panel 88 | + + + + + +-------+ + + | | 2022-06-09 | [facility] | 100 | (missing) | (missing) | | (unavailable | 21:20:07 [facility] | | | | + + + +-------+ + + + + | Result panel 89 | + + + + + + + + + | | 2022-06-09 | [facility] | NORMAL | (missing) | (missing) | | (unavailable | 21:20:07 [facility] | | | | + + + + + + + + + | Result panel 90 | + + + + + + + + + | | 2022-06-09 | [facility] | NEGATIVE | (missing) | (missing) | | (unavailable | 21:20:07 [facility] | | | | + + + + + + + + + | Result panel 91 | + + + + + + + + + | | 2022-06-09 | [facility] | NEGATIVE | (missing) | (missing) | | (unavailable | 21:20:07 [facility] | | | | + + + + + + + + + | Result panel 92 | + + + + + +---------+ + + | | 2022-06-09 | [facility] | 12-20 | (missing) | (missing) | | (unavailable | 21:20:07 [facility] | | | + + + +---------+ + + + + | Result panel 93 | + + + + + +-------+ + + | | 2022-06-09 | [facility] | 2-3 | (missing) | (missing) | | (unavailable | 21:20:07 [facility] | | | + + + +-------+ + + + + | Result panel 94 | + + + + + + + + + | | 2022-06-09 | [facility] | SQUAMOUS 1+ | (missing) | (missing) | | (unavailable | 21:20:07 [facility] | | | | + + + + + + + + + | Result panel 95 | + + + + + + + + + | | 2022-06-09 | [facility] | NONE SEEN | (missing) | (missing) | | (unavailable | 21::07 [facility] | | | | + + + + + + + + + | Result panel 96 | + + + + + +--------+ + + | | 2022-06-09 | [facility] | RARE | (missing) | (missing) | | (unavailable | ::07 [facility] | | | | + + + +--------+ + + + + | Result panel 97 | + + + + + + + + + | | 2022-06-09 | [facility] | NONE SEEN | (missing) | (missing) | | (unavailable | 21:20:07 [facility] | | | | + + + + + + + + + | Result panel 98 | + + + + + +------+ + + | | 2022-06-09 | [facility] | No | (missing) | (missing) | | (unavailable | 21:20:07 [facility] | | | | + + + +------+ + + Social History + + + + | date | description | facility | + + + + | 2022-05-04 00:00 | Ex-smoker | Emergency Department at | | | | [facility] | + + + + | 2022-05-09 00:00 | Current smoker | Emergency Department at | | | | [facility] | + + + + Vital Signs + + + +---------+ | date | measurement | value | units | + + + +---------+ | 2022-05-05 00:00 | BMI | 30.30 | kg/m2 | + + + +---------+ | 2022-05-05 00:00 | BP_diastolic | 88 | mmHg | + + + +---------+ | 2022-05-05 00:00 | BP_systolic | 144 | mmHg | + + + +---------+ | 2022-05-05 00:00 | heart_rate | 90 | /min | + + + +---------+ | 2022-05-05 00:00 | height_metric | 149.9 | cm | + + + +---------+ | 2022-05-05 00:00 | height_standard | 59.02 | in | + + + +---------+ | 2022-05-05 00:00 | o2_saturation | 98 | % | + + + +---------+ | 2022-05-05 00:00 | respiration_rate | 16 | /min | + + + +---------+ | 2022-05-05 00:00 | temperature_metric | 36.61 | C | | | | | | + + + +---------+ | 2022-05-05 00:00 | | 97.9 | F | | | temperature_standar | | | | | d | | | + + + +---------+ | 2022-05-05 00:00 | weight_metric | 68.04 | kg | + + + +---------+ | 2022-05-05 00:00 | weight_standard | 150 | lb | + + + +---------+ | 2022-06-09 00:00 | BMI | 32.4 | kg/m2 | + + + +---------+ | 2022-06-09 00:00 | BP_diastolic | 88 | mmHg | + + + +---------+ | 2022-06-09 00:00 | BP_systolic | 122 | mmHg | + + + +---------+ | 2022-06-09 00:00 | heart_rate | 88 | /min | + + + +---------+ | 2022-06-09 00:00 | height_metric | 149.86 | cm | + + + +---------+ | 2022-06-09 00:00 | height_standard | 59 | in | + + + +---------+ | 2022-06-09 00:00 | o2_saturation | 97 | % | + + + +---------+ | 2022-06-09 00:00 | respiration_rate | 17 | /min | + + + +---------+ | 2022-06-09 00:00 | temperature_metric | 36.78 | C | | | | | | + + + +---------+ | 2022-06-09 00:00 | | 98.2 | F | | | temperature_standar | | | | | d | | | + + + +---------+ | 2022-06-09 00:00 | weight_metric | 72.8 | kg | + + + +---------+ | 2022-06-09 00:00 | weight_standard | 160.49 | lb | + + + +---------+ | 2022-06-09 00:00 | weight_standard | 160.5 | lb | + + + +---------+"
--- OUTSIDE RECORDS SUMMARY | ~2022-10-27 | XMS | Continuity of Care Document ---
Demographics + + + | Address | [address] [address] | | | [place] [address] | + + + | Preferred Language | Unknown | + + + | Marital Status | Never | + + + | Bahai Affiliation | Unknown | + + + | Race | or | + + + | Ethnic Group | Not or | + + + Author + + + | Author | [facility] | + + + | Organization | [facility] | + + + | Address | [address] | | | [place] [address] | + + + | Phone | | + + + Care Team Providers + + + + | Care Food Aide Name | Role | Phone | + [...] + | 2015-08-12 00:00 | HYDROCORTISONE | [facility] | + + + + | 2018-03-29 00:00 | ONDANSETRON HCL | [facility] | + + + + | 2017-11-17 00:00 | darunavir 800 mg oral | Emergency Department at | | | tablet | [facility] | + + + + | 2017-11-17 00:00 | prezista 800 mg oral | Emergency Department at | | | tablet | [facility] | + + + + | 2022-05-09 00:00 | polyvinyl alcohol 0.014 | Emergency Department at | | | ml/ml ophthalmic solution | [facility] | + + + + | 2022-06-09 00:00 | DOLUTEGRAVIR SODIUM | [facility] | + + + + | 2022-06-09 00:00 | LAMIVUDINE | [facility] | + + + + | 2022-05-09 00:00 | 3 ml humalog 100 unt/ml | Emergency Department at | | | cartridge | [facility] | + + + + | 2022-05-09 00:00 | insulin lispro 100 unt/ml | Emergency Department at | | | cartridge | [facility] | + + + + | 2022-06-09 00:00 | ELVITEG/QUIN/EMTRIC/ADARSHO | [facility] | | | ALA | | + + + + | 2018-05-03 00:00 | fluticasone propionate 50 | Emergency Department at | | | mcg/actuat metered dose | [facility] | | | nasal spray | | + + + + | 2022-06-09 00:00 | INDAPAMIDE | [facility] | + + + + | 2022-06-09 00:00 | Ascorbic Acid | [facility] | + + + + | 2022-06-09 00:00 | Semaglutide | [facility] | + + + + | 2017-11-17 00:00 | 3tc 150 mg oral tablet | Emergency Department at | | | | [facility] | + + + + | 2017-11-17 00:00 | azt 300 mg oral tablet | Emergency Department at | | | | [facility] | + + + + | 2022-06-09 00:00 | SPIRONOLACTONE | [facility] | + + + + | 2018-03-09 00:00 | [id number] 200 actuat | Emergency Department at | | | albuterol 0.09 mg/actuat | [facility] | | | metered dose inhaler | | + + + + | 2015-08-30 00:00 | CEPHALEXIN | [facility] | + + + + | 2022-06-09 00:00 | Cholecalciferol (Vitamin | [facility] | | | D3) | | + + + + | 2018-08-24 00:00 | cholecalciferol 125 mcg | Emergency Department at | | | oral capsule | [facility] | + + + + | 2022-05-09 00:00 | vitamin c 500 mg oral | Emergency Department at | | | tablet | [facility] | + + + + | 2022-06-09 00:00 | INSULIN GLARGINE | [facility] | + + + + | 2018-09-10 00:00 | estradiol 0.1 mg/ml | Emergency Department at | | | vaginal cream | [facility] | + + + + | 2022-06-09 00:00 | INSULIN ASPART | [facility] | + + + + | 2022-06-09 00:00 | DULOXETINE HCL | [facility] | + + + + | 2021-07-29 00:00 | TRAMADOL HCL | [facility] | + + + + | 2022-05-05 00:00 | calcium chloride 0.0014 | Emergency Department at | | | meq/ml / k+ chloride 0.004 | [facility] | | | meq/ml / nacl 0.103 meq/ml | | | | / sodium lactate 0.028 | | | | meq/ml injectable solution | | + + + + | 2017-03-26 00:00 | rosuvastatin calcium 10 mg | Emergency Department at | | | oral tablet | [facility] | + + + + | 2022-06-09 00:00 | ROSUVASTATIN CALCIUM | [facility] | + + + + | 2018-09-10 00:00 | estrace 0.01 % vaginal | Emergency Department at | | | cream | [facility] | + + + + | 2018-09-08 00:00 | ritonavir 100 mg oral | Emergency Department at | | | tablet | [facility] | + + + + | 2022-06-09 00:00 | LOSARTAN POTASSIUM | [facility] | + + + + | 2022-06-09 00:00 | LOSARTAN POTASSIUM | [facility] | + + + + | 2018-09-08 00:00 | losartan potassium 50 mg | Emergency Department at | | | oral tablet | [facility] | + + + + | 2019-07-28 00:00 | bupropion hcl 150 mg 12 hr | Emergency Departmentat | | | extended release oral | [facility] | | | tablet | | + + + + | 2022-05-09 00:00 | fexofenadine hcl 180 mg 24 | Emergency Department at | | | hr oral tablet | [facility] | + + + + Problems + + + + | date | description | facility | + + + + | 2014-11-10 00:00 | Patient left without being | [facility] | | | seen | | + + + + | 2015-08-12 00:00 | Perioral dermatitis | [facility] | + + + + | 2015-08-30 00:00 | Viral infection | [facility] | + + + + | 2016-06-06 00:00 | Migraine headache | [facility] | + + + + | 2016-06-06 00:00 | Acute maxillary sinusitis | [facility] | + + + + | 2016-12-25 00:00 | Peripheral edema | [facility] | + + + + | 2017-05-27 00:00 | Hyperglycemia | [facility] | + + + + | 2018-03-29 00:00 | Vomiting | [facility] | + + + + | 2020-06-04 00:00 | Diarrhea | 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) | [facility] | | | [...] 00:00 | Infected blister of left | [facility] | | | hand | | [...] + + | 2021-07-29 21:00 | Other fci (current) | [facility] | | | [...] | 2022-06-09 00:00 | Acute bronchitis | [facility] | + + + + | 2022-06-09 00:00 | Hematuria | [facility] | + + + + | 2022-06-09 00:00 | Positive laboratory | [facility] | | | testing for human | | | | immunodeficiency virus | | + + + + Procedures + + + + | date | description | facility | + + + + | 2022-05-05 00:00 | BASIC METABOLIC SET (NA, | Emergency Department at | | | K, CL, TCO2, BUN, CR, GLU, | [facility] | | | [place]) | | [...] | | | | | | | [id number] | | | | | | | [...] | | | | | | | [id number] | | | | | | | [...] Department at | | | | [facility] | + + + + | 2022-05-09 [...]
[~2022-10-27 21:01] MED LIST changes: +BACTRIM DS TAB1 EACH PO; +CELEXA10 MG PO; +DULOXETINE HCL60 MG PO; +INDAPAMIDE1.25 MG PO; +LANTUS100 UNITS/ SUB-Q; +LOSARTAN POTASS25 MG PO; +OZEMPIC0.25 MG/0. SQ; +TIVICAY50 MG PO; +ULTRAM50 MG PO; +VITAMIN C500 M5 PO; +VITAMIN D3125 MC1 PO
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
[2022-10-27] MEDS ORDERED: INDAPAMIDE2.5 MG PO (21:14)
[2022-10-27 22:05] VITALS: BP 126/67
== END 2022-10-27 22:06 | disposition home or self-care (01) ==
LOC: ED 21:01
DX: S93.402A Sprain of unspecified ligament of left ankle, initial encounter (principal); V89.2XXA Person injured in unspecified motor-vehicle accident, traffic, initial encounter; E10.22 Type 1 diabetes mellitus with diabetic chronic kidney disease; I12.9 Hypertensive chronic kidney disease with stage 1 through stage 4 chronic kidney disease, or unspecified chronic kidney disease; N18.30 Chronic kidney disease, stage 3 unspecified; Z21 Asymptomatic human immunodeficiency virus [HIV] infection status; Z88.0 Allergy status to penicillin; Z88.5 Allergy status to narcotic agent; Z88.8 Allergy status to other drugs, medicaments and biological substances; Z79.4 Long term (current) use of insulin; Z96.41 Presence of insulin pump (external) (internal); Z79.899 Other long term (current) 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
CPT/HCPCS: 73610